=== PATIENT | male | born 1970 | race Caucasian/White ===

== ENCOUNTER → 2018-02-20 16:42 | Outpatient (CLI) | payer OTHER, SELFPAY ==
[2018-02-20 17:57] LABS: Hemoglobin A1C% w Est Avg Glu 6.5 % (4.0-6.0)
== END ==
PROVIDERS: PCP Family Medicine; Visit Provider Family Medicine
DX: R73.9 Hyperglycemia, unspecified (principal)
CPT/HCPCS: 36415; 83036

== ENCOUNTER → 2018-02-26 16:51 | Outpatient (CLI) | payer OTHER, SELFPAY ==
[2018-02-26 18:17] LABS: BUN Creatinine Ratio 22.7 (6-22); Blood Urea Nitrogen 25 mg/dL (9-20); Calcium 9.6 mg/dL (8.4-10.2); Carbon Dioxide 28 mmol/L (22-32); Chloride 100 mmol/L (98-107); Estimated Glomerular Filt Rate > 60.0 mL/min (>60); Glucose 132 mg/dL (70-100); HEMOLYSIS < 15 (0-50); Potassium 3.8 mmol/L (3.4-5.1); Sodium 140 mmol/L (137-145)
[2018-02-26 19:08] LABS: Creatinine Urine Random 45.8 mg/dL
[2018-02-26 19:15] LABS: Microalbumi Creatinin Ratio Ur 13.1 ug/mg CR (<30); Microalbumin Urine Random < 0.6 mg/dL (0-1.6)
[2018-02-28 14:10] LABS: Insulin Level Total 1.6 uIU/mL (2.0-19.6)
[2018-03-02 20:17] LABS: C Peptide 0.59 ng/mL (0.80-3.85)
== END ==
PROVIDERS: PCP Family Medicine; Visit Provider Family Medicine
DX: E11.9 Type 2 diabetes mellitus without complications (principal); D58.2 Other hemoglobinopathies
CPT/HCPCS: 36415; 80048; 82043; 82570; 83525; 84681; 86337

== ENCOUNTER → 2018-06-29 09:05 | Outpatient (CLI) | payer OTHER, SELFPAY ==
[2018-06-29 10:12] LABS: Hemoglobin A1C% w Est Avg Glu 6.4 % (4.0-6.0)
[2018-06-29 10:15] LABS: Alanine Aminotransferase 27 IU/L (21-72); Cholesterol 233 mg/dL (140-199); HDL Cholesterol 73 mg/dL (40-60); LDL Cholesterol Calculated 154 mg/dL (<100); Triglycerides 32 mg/dL (35-150)
[2018-06-29 11:29] LABS: Creatinine Urine Random 39.2 mg/dL
[2018-06-29 11:32] LABS: Thyroid Stimulating Hormone 1.92 uIU/mL (0.47-4.68)
[2018-06-29 11:35] LABS: Microalbumi Creatinin Ratio Ur 15.3 ug/mg CR (<30); Microalbumin Urine Random < 0.6 mg/dL (0-1.6)
== END ==
PROVIDERS: Family Provider Family Medicine; PCP Family Medicine; Visit Provider Internal Medicine Endocrinology, Diabetes & Metabolism
DX: E11.9 Type 2 diabetes mellitus without complications (principal)
CPT/HCPCS: 36415; 80061; 82043; 82570; 83036; 84443; 84460; 86337; 86341

== ENCOUNTER → 2018-10-05 12:09 | Outpatient (CLI) | payer OTHER, SELFPAY ==
[2018-10-05 12:56] LABS: Hemoglobin A1C% w Est Avg Glu 6.1 % (4.0-6.0)
[2018-10-05 13:12] LABS: Cholesterol 205 mg/dL (140-199); HDL Cholesterol 78 mg/dL (40-60); LDL Cholesterol Calculated 120 mg/dL (<100); Triglycerides 37 mg/dL (35-150)
== END ==
PROVIDERS: PCP Family Medicine; Visit Provider Internal Medicine Endocrinology, Diabetes & Metabolism
DX: E11.9 Type 2 diabetes mellitus without complications (principal); E78.1 Pure hyperglyceridemia
CPT/HCPCS: 36415; 80061; 83036

== ENCOUNTER → 2019-02-09 10:01 | Outpatient (CLI) | payer OTHER, SELFPAY ==
[2019-02-09 10:42] LABS: Hemoglobin A1C% w Est Avg Glu 6.1 % (4.0-6.0)
[2019-02-09 11:35] LABS: LDL Cholesterol Direct 133 mg/dL (<100)
== END ==
PROVIDERS: PCP Family Medicine; Visit Provider Internal Medicine Endocrinology, Diabetes & Metabolism
DX: R73.03 Prediabetes (principal)
CPT/HCPCS: 36415; 83036; 83721

== ENCOUNTER → 2019-10-12 08:00 | Outpatient (CLI) | payer OTHER, SELFPAY ==
[2019-10-12 09:33] LABS: Hemoglobin A1C% w Est Avg Glu 6.6 % (4.0-6.0)
[2019-10-12 09:40] LABS: Cholesterol 244 mg/dL (140-199); HDL Cholesterol 81 mg/dL (40-60); LDL Cholesterol Calculated 154 mg/dL (<100); Triglycerides 47 mg/dL (35-150)
[2019-10-12 09:51] LABS: LDL Cholesterol Direct 140 mg/dL (<100)
== END ==
PROVIDERS: PCP Family Medicine; Referring Provider Internal Medicine Endocrinology, Diabetes & Metabolism; Visit Provider Internal Medicine Endocrinology, Diabetes & Metabolism
DX: E11.9 Type 2 diabetes mellitus without complications (principal); E78.00 Pure hypercholesterolemia, unspecified
CPT/HCPCS: 36415; 80061; 83036; 83721

== ENCOUNTER → 2020-03-14 11:58 | Outpatient (CLI) | payer OTHER, SELFPAY ==
[2020-03-14 13:13] LABS: Glucose 143 mg/dL (70-100); Hemoglobin A1C% w Est Avg Glu 6.7 % (4.0-6.0)
[2020-03-14 13:13] LABS: Creatinine Urine Random 140.3 mg/dL
[2020-03-14 13:18] LABS: Microalbumi Creatinin Ratio Ur 6.4 ug/mg CR (<30); Microalbumin Urine Random 0.9 mg/dL (0-1.6)
[2020-03-15 08:07] LABS: C Peptide 3.1 ng/mL (1.1-4.4)
== END ==
PROVIDERS: PCP Family Medicine; Referring Provider Internal Medicine Endocrinology, Diabetes & Metabolism; Visit Provider Internal Medicine Endocrinology, Diabetes & Metabolism
DX: E11.9 Type 2 diabetes mellitus without complications (principal)
CPT/HCPCS: 36415; 82043; 82570; 82947; 83036; 84681

== ENCOUNTER → 2020-10-02 10:13 | Outpatient (CLI) | payer OTHER, SELFPAY ==
[2020-10-02 11:55] LABS: Glucose 141 mg/dL (70-100)
[2020-10-02 11:57] LABS: Hemoglobin A1C% w Est Avg Glu 6.4 % (4.0-6.0)
[2020-10-03 21:09] LABS: Deamidated Gliadin Ab IgA 4 units (0-19); Deamidated Gliadin Ab IgG 2 units (0-19); Immunoglobulin A,Qn 318 mg/dL (90-386); t-Transglutaminase IgA <2 U/mL (0-3)
== END ==
PROVIDERS: PCP Family Medicine; Referring Provider Internal Medicine Endocrinology, Diabetes & Metabolism; Visit Provider Internal Medicine Endocrinology, Diabetes & Metabolism
DX: E11.9 Type 2 diabetes mellitus without complications (principal)
CPT/HCPCS: 36415; 82784; 82947; 83036; 83516

== ENCOUNTER → 2021-12-01 15:30 | Outpatient (CLI) | payer OTHER, SELFPAY ==
[2021-12-01 17:10] LABS: COVID19 -Nasal RAPID Negative (Negative)
== END ==
PROVIDERS: PCP Family Medicine; Visit Provider Surgery
DX: Z20.822 Contact with and (suspected) exposure to COVID-19 (principal); Z01.812 Encounter for preprocedural laboratory examination
CPT/HCPCS: 87635; C9803

== ENCOUNTER 2021-12-02 13:38 | Day surgery (SDC) | payer OTHER, SELFPAY ==
[2021-12-02 13:56] VITALS: BP 137/85; PULSE 89; RESP 16; TEMP 36.4; O2SAT 99; BMI 21.9
--- NOTE | 2021-12-02 14:10 | PM.HP.1 ---
History of Present Illness History of Present Illness Date Patient Seen: 12/02/21 Time Patient Seen: 14:11 Chief complaint: SCREENING COLONOSCOPY Narrative: The patient presents for colorectal screening. They have never had any previous examination for such. No personal or family history of colon cancer. On further history denies any recent gastrointestinal symptoms. No nausea, vomiting, abdominal pain, loss of appetite, unexplained weight loss, change in bowel habits, diarrhea, constipation, melena, hematochezia, or bright red blood per rectum. Patient History Medical History Type 2 diabetes mellitus Surgical History H/O right knee surgery (~2009) Family & Social History Social History: household members family lives independently Yes caregiver/support person No Tobacco & Substance use: Smoking Status Never smoker alcohol intake current Meds Home Medications and Allergies Home Medications Medication Instructions Recorded Confirmed Type terbinafine HCl 250 mg tablet 250 mg PO DAILY 10/06/21 12/02/21 History Allergies Allergy/AdvReac Type Severity Reaction Status Date / Time No Known Drug Allergies Allergy Verified 12/02/21 13:18 Exam Narrative Exam Narrative: General adult male alert oriented no acute distress Chest nonlabored respiration Extremities warm well perfused Assessment & Plan Assessment & Plan narrative: The patient requires colorectal screening and colonoscopy is recommended. Technical details were discussed. Risks, benefits, alternatives explained. Risks including but not limited to myocardial infarction, aspiration, bleeding, pain, missed lesion, incomplete examination, need for further radiographic studies, colonic perforation, and need for major abdominal surgery were discussed. All questions were answered to their satisfaction, and they are in agreement with this plan. Time Spent With Patient Critical Care time: I spent a total of [] minutes of critical care time on this patient's care today; this time is exclusive of procedural time.
[2021-12-02] MEDS: LACTATED RINGERS 1,000 ML 200 ML IV (14:13)
--- NOTE | 2021-12-02 14:17 | P.OP.COLON_ITS ---
Operative Date/Time/Diagnoses Date of procedure: 12/02/21 Time of procedure: 14:17 Pre-op diagnosis: Screening Post-op diagnosis: same Procedure & Clinicians Study performed: Colonoscopy Same procedure as scheduled: Yes Indications: Screening Surgeon: Colton Guadalupe Procedure Notes Procedure in detail: Medications: Conscious sedation using 7 mg IV midazolam and 100 mcg IV of fentanyl The history and physical was performed/updated and the patient is ASA class is 2. The procedure was discussed in detail with the patient. Potential risks complications including infection, bleeding, missed diagnosis, perforation, need for surgery, and were explained. Their questions were answered and informed consent was obtained. Patient was brought to the procedure room and placed standard monitoring equipment. The patient's vital signs were monitored continuously throughout the entire procedure. Prior to starting time-out was performed. The patient was placed in the left lateral recumbent position. Procedural sedation was adminis tered. Examination began with a thorough inspection of the perianal area there was no evidence of fissures, fistulae, external hemorrhoids or cutaneous malignancy. The colonoscopy scope was then placed into the anal canal and was advanced to the cecum, which was identified by the ileocecal valve, the appendiceal orifice and the confluence of the taenia. The scope was then slowly withdrawn examining colon thoroughly in all directions, irrigating it of any residual stool. FINDINGS 1. No masses or polyps 2. Normal healthy colon The patient tolerated the procedure well. They will be discharged once criteria are met. The prep was of good/excellent quality. The withdrawl time was 6 minutes. The sedation time was 16 minutes. Specimen(s): none sent Impression: Normal colonoscopy Post-procedure Recommendations: Colonoscopy in 10 years Disposition: same day surgery
[2021-12-02] MEDS: fentaNYL 100 MCG/2 ML INJ IV (14:39)
[2021-12-02] MEDS: MIDAZOLAM 5 MG/5 ML VIAL IV (14:39)
[2021-12-02 14:42] VITALS: BP 116/79; PULSE 21; RESP 22; TEMP 36.3; O2SAT 97
[2021-12-02 14:47] VITALS: BP 112/75; PULSE 91; RESP 13; O2SAT 95
[2021-12-02 14:52] VITALS: BP 113/84; PULSE 87; RESP 17; O2SAT 95
[2021-12-02 14:58] VITALS: BP 121/91; PULSE 11; RESP 12; TEMP 36.3; O2SAT 95
[2021-12-02 15:15] VITALS: BP 114/80; PULSE 83; RESP 14; O2SAT 96
== END 2021-12-02 15:15 | disposition home or self-care (01) ==
PROVIDERS: PCP Family Medicine; Referring Provider Surgery; Visit Provider Surgery
PROC: 0DJD8ZZ Inspection of Lower Intestinal Tract, Via Natural or Artificial Opening Endoscopic (ICD-10-PCS; CPT 45378; principal; 2021-12-02 14:30)
DX: Z12.11 Encounter for screening for malignant neoplasm of colon (principal); E11.9 Type 2 diabetes mellitus without complications
CPT/HCPCS: 45378; 36415; 99152; J2250; J3010

== ENCOUNTER → 2022-04-15 18:11 | Outpatient (CLI) | payer OTHER, SELFPAY | PROVIDERS: PCP Family Medicine; Visit Provider Nurse Practitioner Family | DX: J02.9 Acute pharyngitis, unspecified (principal) | CPT/HCPCS: 87070; 87147 ==

== ENCOUNTER → 2022-06-24 07:49 | Outpatient (CLI) | payer OTHER, SELFPAY ==
[2022-06-24 08:48] LABS: Alanine Aminotransferase 20 IU/L (<50); Albumin 4.2 g/dL (3.5-5.0); Albumin Globulin Ratio 1.7 (1.0-2.8); Alkaline Phosphatase 55 U/L (38-126); Aspartate Aminotransferase 23 IU/L (17-59); BUN Creatinine Ratio 19.3 (6-22); Bilirubin Total 0.8 mg/dL (0.2-1.3); Blood Urea Nitrogen 16 mg/dL (9-20); Calcium 9.2 mg/dL (8.4-10.2); Carbon Dioxide 29 mmol/L (22-32); Chloride 100 mmol/L (98-107); Estimated Glomerular Filt Rate > 60 mL/min (>60); Globulin 2.5 g/dL (1.7-4.1); Glucose 135 mg/dL (70-100); HEMOLYSIS < 15 (0-50); Potassium 4.1 mmol/L (3.4-5.1); Sodium 135 mmol/L (137-145); Total Protein 6.7 g/dL (6.3-8.2)
[2022-06-24 08:55] LABS: Microalbumin Urine Random < 0.6 mg/dL (0-1.6)
[2022-06-25 09:51] LABS: x Labcorp Estim. Avg Glu (eAG) 148 mg/dL (.); x Labcorp Hemoglobin A1c 6.8 % (4.8-5.6)
== END ==
PROVIDERS: PCP Family Medicine; Referring Provider Family Medicine; Visit Provider Family Medicine
DX: E11.9 Type 2 diabetes mellitus without complications (principal)
CPT/HCPCS: 80053; 82043; 82570; 83036

== ENCOUNTER → 2022-10-15 07:56 | Outpatient (CLI) | payer OTHER, SELFPAY ==
[2022-10-15 09:10] LABS: Hemoglobin A1C% w Est Avg Glu 6.7 % (4.0-6.0)
== END ==
PROVIDERS: PCP Family Medicine; Referring Provider Family Medicine; Visit Provider Family Medicine
DX: E11.9 Type 2 diabetes mellitus without complications (principal)
CPT/HCPCS: 36415; 83036

== ENCOUNTER → 2023-03-21 09:08 | Outpatient (CLI) | payer OTHER, SELFPAY ==
[2023-03-21 10:36] LABS: Hemoglobin A1C% w Est Avg Glu 6.6 % (4.0-6.0)
== END ==
PROVIDERS: PCP Family Medicine; Referring Provider Family Medicine; Visit Provider Family Medicine
DX: E11.9 Type 2 diabetes mellitus without complications (principal)
CPT/HCPCS: 36415; 83036

== ENCOUNTER → 2024-08-24 08:19 | Outpatient (CLI) | payer OTHER, SELFPAY ==
[2024-08-24 09:54] LABS: Hemoglobin A1C% w Est Avg Glu 6.2 % (4.0-6.0)
[2024-08-24 09:56] LABS: Alanine Aminotransferase 19 IU/L (<50); Albumin 4.4 g/dL (3.5-5.0); Albumin Globulin Ratio 1.8 (1.0-2.8); Alkaline Phosphatase 49 U/L (38-126); Blood Urea Nitrogen 19 mg/dL (9-20); Calcium 9.5 mg/dL (8.4-10.2); Carbon Dioxide 29 mmol/L (22-32); Chloride 102 mmol/L (98-107); Cholesterol 228 mg/dL (140-199); Estimated Glomerular Filt Rate > 60 mL/min (>60); Globulin 2.5 g/dL (1.7-4.1); Glucose 122 mg/dL (70-99); HDL Cholesterol 79 mg/dL (40-60); HEMOLYSIS < 15 (0-50); Potassium 4.7 mmol/L (3.4-5.1); Sodium 136 mmol/L (137-145); Total Protein 6.9 g/dL (6.3-8.2); Triglycerides 45 mg/dL (35-150)
== END ==
PROVIDERS: PCP Family Medicine; Referring Provider Family Medicine; Visit Provider Family Medicine
DX: E11.9 Type 2 diabetes mellitus without complications (principal)
CPT/HCPCS: 36415; 80053; 80061; 82043; 82570; 83036